=== PATIENT | female | born 1930 | race Caucasian/White ===

== ENCOUNTER 2017-05-12 14:32 | Emergency (ER) | payer MEDICARE, OTHER ==
[2017-05-12] MEDS ORDERED: METOPROLOL 5 MG/5 ML VIAL IVP STA ×3 (15:07→15:52)
[2017-05-12 15:10] LABS: BASOPHILS # (AUTO) 0.1 10^3/uL (0.0-0.1); BASOPHILS % (AUTO) 0.6 %; EOSINOPHILS # (AUTO) 0.1 10^3/uL (0.0-0.7); EOSINOPHILS % (AUTO) 1.2 %; HCT - HEMATOCRIT 45.4 % (37.0-47.0); HGB - HEMOGLOBIN 14.8 g/dL (12.0-16.0); LYMPHOCYTES # (AUTO) 3.6 10^3/uL (1.5-3.5); LYMPHOCYTES % (AUTO) 30.1 %; MEAN CORPUSCULAR HEMOGLOBIN 31.7 pg (27.0-31.0); MEAN CORPUSCULAR HGB CONC 32.5 g/dL (32.0-36.0); MEAN CORPUSCULAR VOLUME 97.7 fL (81.0-99.0); MEAN PLATELET VOLUME 8.5 fL (7.9-10.8); MONOCYTES % (AUTO) 8.1 %; NEUTROPHILS # (AUTO) 7.2 10^3/uL (1.5-6.6); RED BLOOD COUNT 4.65 10^6/uL (4.20-5.40); RED CELL DISTRIBUTION WIDTH 14.5 % (12.0-15.0)
[2017-05-12] MEDS ORDERED: METOPROLOL 5 MG/5 ML VIAL IVP ONE ×2 (15:17→15:40)
[2017-05-12 15:22] LABS: ALBUMIN/GLOBULIN RATIO 1.1 (1.0-2.2); BILIRUBIN,TOTAL 0.8 mg/dL (0.2-1.0); CALCIUM 9.2 mg/dL (8.5-10.3); POTASSIUM 4.1 mmol/L (3.5-5.0); TOTAL PROTEIN 7.6 g/dL (6.7-8.2)
--- NOTE | 2017-05-12 15:22 | XRAY Preliminary Report ---
Exam: XR Chest 1 View IMPRESSION: Small patchy density right mid lung uncertain significance. If this lady has symptoms of an inflammatory process, follow-up two-view chest after antibiotic therapy recommended. If no prior e xams available to evaluate for long-term stability nor respiratory symptoms at this time, upright 2 v iew chest recommended when this lady is able. [facility] SITE ID: [id number]
--- NOTE | 2017-05-12 15:24 | ED Physician Documentation ---
History of Present Illness - Stated complaint Stated Complaint: CHEST PX - Chief complaint Chief Complaint: Cardiac - Additonal information Additional information: hx from pt 87 f known a fib on xarelto and recently [facility] days to be started on dofetilide for rate control last stress test < 2 yr ago was fine left sided chest pain upon awakening worse with movement and she thinks maybe she slept on it wrong, but no change in activity recently and not TTP no fever or cough has been breathing rapidly at night and having some new pedal edema - but no dyspnea on exertion recently no inc caffeine, no decongestants, no other recent med changes Review of Systems Constitutional: denies: Fever, Chills Throat: denies: Sore throat Cardiac: reports: Chest pain / pressure, Palpitations Respiratory: denies: Dyspnea, Cough GI: denies: Abdominal Pain, Nausea, Vomiting, Diarrhea Musculoskeletal: reports: Extremity swelling Endocrine: denies: Easy bruising / bleeding Immunocompromised: denies: Immunocompromised PD PAST MEDICAL HISTORY - Past Medical History Past Medical History: Yes Cardiovascular: Coronary artery disease, Atrial fibrillation Respiratory: Asthma, COPD - Past Surgical History General: Cholecystectomy Ortho: Shoulder arthroplasty Cardiovascular: Coronary stent HEENT: Tonsil/Adenoidectomy - Present Medications Home Medications: Ambulatory Orders Medication Instructions Recorded Confirmed Atorvastatin [Lipitor] 10 mg 05/12/17 Budesonide/Formoterol Fumarate 05/12/17 [Symbicort 160-4.5 Mcg Inhaler] Dofetilide 250 mcg PO DAILY 05/12/17 05/12/17 Furosemide 20 mg PO DAILY 05/12/17 05/12/17 Levothyroxine Sodium [Synthroid] 50 mcg PO DAILY 05/12/17 05/12/17 Omeprazole 20 mg PO DAILY 05/12/17 05/12/17 Rivaroxaban [Xarelto] 20 mg PO DAILY 05/12/17 05/12/17 Tiotropium [place] [Spiriva] 05/12/17 - Allergies Allergies/Adverse Reactions: Allergies Allergy/AdvReac Type Severity Reaction Status Date / Time No Known Drug Allergies Allergy Verified 05/12/17 14:39 - Social History Does the pt smoke?: No Smoking Status: Never smoker Does the pt drink ETOH?: No Does the pt have substance abuse?: No - Immunizations Immunizations: TDAP current <10years - POLST Patient has POLST: No PD ED PE NORMAL - Vitals Vital signs reviewed: Yes - General General: Alert and oriented X 3 - HEENT HEENT: PERRL - Neck Neck: Supple, no meningeal sign - Cardiac Cardiac: No: RRR (rapid and irreg) - Respiratory Respiratory: No respiratory distress, Clear bilaterally - Derm Derm: Normal color - Extremities Extremities: Other (mild ok edema) Results - Vitals Vitals: Vital Signs - 24 hr 05/12/17 05/12/17 05/12/17 14:36 15:25 15:30 Temperature 36.3 C L Heart Rate 86 106 H 98 Respiratory 18 18 17 Rate Blood Pressure 146/101 H 142/91 H 124/96 H O2 Saturation 99 97 97 05/12/17 05/12/17 05/12/17 15:35 15:45 15:50 Temperature Heart Rate 102 H 95 97 Respiratory 19 16 22 Rate Blood Pressure 136/92 H 145/90 H 134/74 H O2 Saturation 97 96 96 05/12/17 05/12/17 15:55 16:15 Temperature Heart Rate 69 68 Respiratory 12 21 Rate Blood Pressure 132/101 H 142/75 H O2 Saturation 96 96 Oxygen O2 Source Room air - EKG (time done) 1448 Rate: Rate (enter#) (80) Rhythm: Atrial fibrillation, Other (pairs triplets of PVCs on tele) Ischemia: Non specific changes - Labs Labs: Laboratory Tests 05/12/17 05/12/17 05/12/17 15:00 15:00 15:00 WBC 12.0 H RBC 4.65 Hgb 14.8 Hct 45.4 MCV 97.7 MCH 31.7 H MCHC 32.5 RDW 14.5 Plt Count 262 MPV 8.5 Neut # 7.2 H Lymph # 3.6 H [place] # 1.0 Eos # 0.1 Baso # 0.1 Absolute Nucleated RBC 0.00 Nucleated RBCs 0.0 Sodium 135 Potassium 4.1 Chloride 97 L Carbon Dioxide 29 Anion Gap 9.0 BUN 16 Creatinine 1.0 Estimated GFR (MDRD) 53 L Glucose 93 Calcium 9.2 Total Bilirubin 0.8 AST 23 ALT 21 Alkaline Phosphatase 67 Troponin I < 0.04 B-Natriuretic Peptide Total Protein 7.6 Albumin 3.9 Globulin 3.7 Albumin/Globulin Ratio 1.1 Lipase 25 07/20/17 15:00 WBC RBC Hgb Hct MCV MCH MCHC RDW Plt Count MPV Neut # Lymph # [place] # Eos # Baso # Absolute Nucleated RBC Nucleated RBCs Sodium Potassium Chloride Carbon Dioxide Anion Gap BUN Creatinine Estimated GFR (MDRD) Glucose Calcium Total Bilirubin AST ALT Alkaline Phosphatase Troponin I B-Natriuretic Peptide 503 H Total Protein Albumin Globulin Albumin/Globulin Ratio Lipase - Rads (name of study) CXR Radiology: See rad report (small patchy density right mid lung, consider follow up CXR after antibiotcs - pt has no cough no fever clear lungs on exam - do not thinbk ab are needed but will rec fup CXR) PD MEDICAL DECISION MAKING - ED course ED course: given BB and converted to sinus, trop neg after > 8 hr of sx, slightly elev BNP and some edema but no sig CHF on exam, will inc lasix and rec fup cardio for an echo Departure - Departure Disposition: 01 Home, Self Care Clinical Impression: Atrial fibrillation, rapid, Orthopnea Chest pain Qualifiers: Chest pain type: unspecified Qualified Code(s): R07.9 - Chest pain, unspecified Condition: Good Instructions: ED Chest Pain Atypical Unkn Cause, Atrial Fibrillation Dc Follow-Up: Patricia Perla ARNP [Primary Care Provider] - Comments: The blood tests for a heart attack were negative. It is very unlikely you would develop a blood clot in your lugs while already on xarelto. The xray does not show an aortic aneurysm or tear I am not sure why your chest is hurting - it seems to be worse when you move so it may be in the muscles of your chest wall. You were in atrial fibrillation but after the rate was slowed down with lopressor you converted back to a regular rhythm Your feet are swollen and the blood test for congestive heart failure was slightly elevated and so i suspect your rapid breathing at night is due to extra fluid in your lungs. There was a small area of fluid or consolidation in the right lung but a large or dangerous amount of fluid. Please increase your lasix to 40 mg daily for the next week. Please follow up with your tooling engineering tech about the chest pain and fluid in your lungs. And please get your electrolytes and blood pressure checked within the next week after increasing your lasix. The radiologist recommends a repeat xray in 6 weeks as well to see if the density in your right lungs clears up. Return to the ER if worse
--- NOTE | 2017-05-12 15:34 | XRAY Report ---
EXAM: CHEST RADIOGRAPHY EXAM DATE: 05/12/2017 03:00 p.m. CLINICAL HISTORY: Chest pain. COMPARISON: None. TECHNIQUE: 1 view. FINDINGS: Lungs/Pleura: Small patchy infiltrate or atelectasis, right midlung. Left lung is clear. No effusion, vascular congestion nor pneumothorax. Mediastinum: Within exam limitations, cardiomediastinal contour is normal. Other: None. IMPRESSION: Small patchy density in right mid lung of uncertain significance. If this lady has symptoms of an inf lammatory process, follow-up 2-view chest after antibiotic therapy recommended. If no prior exams jacinda ilable to evaluate for long-term stability nor respiratory symptoms at this time, upright 2-view ches t recommended when this lady is able. [facility] Referring Provider Line: [phone] SITE ID: [id number]
[2017-05-12] MEDS ORDERED: ACETAMINOPHEN 325 MG TABLET PO STA (16:51)
[2017-05-12 18:12] VITALS: BP 134/84
== END 2017-05-12 17:50 | disposition home or self-care (01) ==
LOC: ED 14:32
DX: I48.91 Unspecified atrial fibrillation (principal); Z79.01 Long term (current) use of anticoagulants; R06.01 Orthopnea; R07.9 Chest pain, unspecified; I25.10 Atherosclerotic heart disease of native coronary artery without angina pectoris; J44.9 Chronic obstructive pulmonary disease, unspecified; J45.909 Unspecified asthma, uncomplicated
CPT/HCPCS: 36415; 71010; 80053; 83690; 83880; 84484; 85025; 93005; 96374; 96376; 99284

== ENCOUNTER 2018-04-17 14:51 | Outpatient (CLI) | payer MEDICARE, OTHER | END 2018-04-17 14:52 | disposition critical access hospital (66) | LOC: EMS 14:51 | PROVIDERS: ATTEND Surgery | DX: R53.83 Other fatigue (principal); R06.02 Shortness of breath; R50.9 Fever, unspecified | CPT/HCPCS: A0425; A0427 ==

== ENCOUNTER 2018-04-17 15:22 | Inpatient (IN) | payer MEDICARE, OTHER ==
--- NOTE | 2018-04-17 15:40 | ED Physician Documentation ---
History of Present Illness - Stated complaint Stated Complaint: SOA - History obtained from History obtained from: Patient - History of Present Illness Timing: Yesterday (88-year-old woman with history of atrial fibrillation, GERD, CHF, COPD and asthma who was on antibiotics for pneumonia about 3 months ago developed a productive cough with shortness of breath and fatigue and chills starting today. On seeing her temperature was 101 and her pulse oximetry was 90 %. She was administered nitroglycerin paste and Lasix en route and a breathing treatment without change.) Review of Systems Ten Systems: 10 systems reviewed and negative Constitutional: reports: Fever, Chills, Fatigue Nose: denies: Rhinorrhea / runny nose, Congestion Throat: denies: Sore throat Cardiac: denies: Chest pain / pressure, Palpitations PD PAST MEDICAL HISTORY - Past Medical History Cardiovascular: Coronary artery disease, Atrial fibrillation Respiratory: Asthma, COPD - Past Surgical History General: Cholecystectomy Ortho: Shoulder arthroplasty Cardiovascular: Coronary stent HEENT: Tonsil/Adenoidectomy - Present Medications Home Medications: Ambulatory Orders Medication Instructions Recorded Confirmed Atorvastatin [Lipitor] 10 mg 05/12/17 Budesonide/Formoterol Fumarate 05/12/17 [Symbicort 160-4.5 Mcg Inhaler] Dofetilide 250 mcg PO DAILY 05/12/17 05/12/17 Furosemide 20 mg PO DAILY 05/12/17 05/12/17 Levothyroxine Sodium [Synthroid] 50 mcg PO DAILY 05/12/17 05/12/17 Omeprazole 20 mg PO DAILY 05/12/17 05/12/17 Rivaroxaban [Xarelto] 20 mg PO DAILY 05/12/17 05/12/17 Tiotropium [place] [Spiriva] 05/12/17 - Allergies Allergies/Adverse Reactions: Allergies Allergy/AdvReac Type Severity Reaction Status Date / Time No Known Drug Allergies Allergy Verified 05/12/17 14:39 - Social History Does the pt smoke?: No Smoking Status: Never smoker Does the pt drink ETOH?: No Does the pt have substance abuse?: No - Family History Family history: reports: Non contributory - Immunizations Immunizations: TDAP current <10years - POLST Patient has POLST: No PD ED PE NORMAL - Vitals Vital signs reviewed: Yes - General General: Alert and oriented X 3, No acute distress - HEENT HEENT: PERRL, EOMI - Neck Neck: Supple, no meningeal sign, No bony TTP - Cardiac Cardiac: Other (Loud systolic murmur) - Respiratory Respiratory: Other (Breathing comfortably, significant crackles in the right base more so than the left but diminished somewhat in both bases.) - Abdomen Abdomen: Soft, Non tender - Back Back: No CVA TTP, No spinal TTP - Derm Derm: Normal color, Warm and dry - Extremities Extremities: Other (Mild bilateral pitting pedal edema, symmetric) - Neuro Neuro: Alert and oriented X 3, Normal speech Results - Vitals Vitals: Vital Signs - 24 hr 04/17/18 15:31 Temperature 37.8 C H Heart Rate 70 Respiratory 16 Rate Blood Pressure 132/67 H O2 Saturation 94 Oxygen O2 Source Nasal cannula Oxygen Flow Rate 3 - EKG (time done) 1549 Rate: Rate (enter#) (70) Rhythm: Other (Underlying A. fib with paced rhythm, ventricular.) - Labs Labs: Laboratory Tests 04/17/18 04/17/18 04/17/18 15:50 15:50 15:50 WBC 9.5 RBC 3.86 L Hgb 12.0 Hct 36.9 L MCV 95.6 MCH 31.1 H MCHC 32.5 RDW 15.5 H Plt Count 204 MPV 7.9 Neut # (Auto) 8.6 H Lymph # (Auto) 0.4 L [place] # (Auto) 0.5 Eos # (Auto) 0.0 Baso # (Auto) 0.0 Absolute Nucleated RBC 0.00 Nucleated RBC % 0.0 Sodium 131 L Potassium 3.5 Chloride 101 Carbon Dioxide 21 Anion Gap 9.0 BUN 22 H Creatinine 1.3 H Estimated GFR (MDRD) 39 L Glucose 95 Calcium 8.3 L Magnesium 1.4 L Total Bilirubin 1.8 H AST 26 ALT 28 Alkaline Phosphatase 52 Troponin I 0.04 Total Protein 6.5 L Albumin 3.1 L Globulin 3.4 Albumin/Globulin Ratio 0.9 L Lipase 21 L PD MEDICAL DECISION MAKING - ED course ED course: 88-year-old woman who is febrile at home with cough and shortness of breath. She had some soft diastolic pressures in the field and has evidence of right lower lobe pneumonia on exam which is corroborated on x-ray. Her white blood cell count is okay she does have some prerenal insufficiency with a normal creatinine of 1 now 1.3. She is breathing rapidly, up into the 30s sometimes on the monitor. She has not been hypoxic though. Given her advanced age and comorbidities she will need to be admitted for further evaluation and treatment. She was placed on Rocephin and for atypical coverage I chose doxycycline given her cardiac meds that cause long QT. I spoke with Dr. Bolden for admission at 4:25 PM. - Sepsis Event Vital Signs: Vital Signs - 24 hr 04/17/18 15:31 Temperature 37.8 C H Heart Rate 70 Respiratory 16 Rate Blood Pressure 132/67 H O2 Saturation 94 Oxygen O2 Source Nasal cannula Oxygen Flow Rate 3 Departure - Departure Disposition: 66 [facility] DC/Xfer Clinical Impression: Pneumonia Qualifiers: Pneumonia type: due to unspecified organism Laterality: right Lung location: lower lobe of lung Qualified Code(s): J18.1 - Lobar pneumonia, unspecified organism Condition: Serious
[2018-04-17 16:02] LABS: BASOPHILS % (AUTO) 0.3 %; LYMPHOCYTES # (AUTO) 0.4 10^3/uL (1.5-3.5); LYMPHOCYTES % (AUTO) 4.2 %; MEAN CORPUSCULAR HEMOGLOBIN 31.1 pg (27.0-31.0); MEAN CORPUSCULAR HGB CONC 32.5 g/dL (32.0-36.0); MEAN CORPUSCULAR VOLUME 95.6 fL (81.0-99.0); MEAN PLATELET VOLUME 7.9 fL (7.9-10.8); MONOCYTES # (AUTO) 0.5 10^3/uL (0.0-1.0); MONOCYTES % (AUTO) 5.2 %; NEUTROPHILS # (AUTO) 8.6 10^3/uL (1.5-6.6); NEUTROPHILS % (AUTO) 90.3 %; PLT - PLATELET COUNT 204 10^3/uL (130-450); RED BLOOD COUNT 3.86 10^6/uL (4.20-5.40); RED CELL DISTRIBUTION WIDTH 15.5 % (12.0-15.0); WHITE BLOOD COUNT 9.5 x10^3/uL (4.8-10.8)
[2018-04-17] MEDS ORDERED: DOXYCYCLINE INJ 100 MG in SODIUM CHLORIDE 0.9% MINIBAG 100 ML IV STA (16:03)
[2018-04-17] MEDS ORDERED: cefTRIAXone 1 GM in SODIUM CHLORIDE 0.9% MINIBAG 100 ML IV STA (16:03)
--- NOTE | 2018-04-17 16:12 | XRAY Report ---
Procedure Date: 04/17/2018 Accession Number: [id number] / [id number] Procedure: XR - Chest 1 View X-Ray CPT Code: 58780 FULL RESULT: EXAM: CHEST RADIOGRAPHY EXAM DATE: 04/17/2018 04:01 PM. CLINICAL HISTORY: Cough and shortness of breath for 4 days. COMPARISON: 05/12/2017. TECHNIQUE: 1 view. FINDINGS: Lungs/Pleura: New opacification inferior third right lung. New mild blunting right lateral costophrenic angle. New mild interstitial prominence throughout both upper lobes and left lung base. No pneumothorax. Mediastinum: New single lead left subclavian pacer. Normal caliber heart. No tracheal shift. Other: None. IMPRESSION: 1. Pacer. 2. Consolidation or mass right lung base. 3. Small right pleural effusion. 4. More diffuse interstitial prominence raising the possibility of interstitial edema versus airway disease. [facility]
[2018-04-17 16:14] LABS: ALBUMIN 3.1 g/dL (3.2-5.5); ALBUMIN/GLOBULIN RATIO 0.9 (1.0-2.2); BILIRUBIN,TOTAL 1.8 mg/dL (0.2-1.0); CALCIUM 8.3 mg/dL (8.5-10.3); CREATININE 1.3 mg/dL (0.4-1.0); MAGNESIUM 1.4 mg/dL (1.7-2.8); TOTAL PROTEIN 6.5 g/dL (6.7-8.2)
[2018-04-17] MEDS ORDERED: MAGNESIUM SULFATE 2 GRAM 2 GM/50 ML BAG IV ONE (16:17)
[2018-04-17] MEDS ORDERED: PROCHLORPERAZINE 10 MG/2 ML VIAL IVP PRN (16:33)
[2018-04-17] MEDS ORDERED: HYDROcod/ACETAM 5/325 MG TABLET PO PRN (16:33)
[2018-04-17] MEDS ORDERED: ONDANSETRON 4 MG/2 ML VIAL IVP PRN (16:33)
[2018-04-17] MEDS ORDERED: ACETAMINOPHEN 325 MG TABLET PO PRN (16:33)
[2018-04-17] MEDS ORDERED: IPRATROPIUM/ALBUTEROL 3 ML NEB INH PRN (16:33)
[2018-04-17] MEDS ORDERED: SODIUM CHLORIDE 0.9% 1,000 ML IV SCH (19:00)
[2018-04-17] MEDS: SODIUM CHLORIDE FLUSH 0.9% 10 ML SYRINGE IVP SCH ×2 (19:20→23:58)
--- NOTE | 2018-04-17 19:47 | HISTORY & PHYSICAL EXAMINATION ---
Chief Complaint - Chief Complaint Chief Complaint: Shortness of breath History of Present Illness - Admitted From Admitted From:: Emergency Department - History Obtained From Records Reviewed: Yes History obtained from: Patient, patients daughter Exam Limitations: None - History of Present Illness HPI Comment/Other: Patient is an 88-year-old female with a past medical history significant for atrial fibrillation status post pacemaker on Xarelto, congestive heart failure with unknown ejection fraction, COPD, coronary artery disease status post stent , hypertension and osteoarthritis who presented to the emergency department with a chief complaint of shortness of breath. The patient states that between the months of November and January of this year she was hospitalized 3 times in [place] where she lives during the winter. She states first she was hospitalized for a bilateral pneumonia and spent 2 weeks in the hospital then was hospitalized for A. fib with rapid ventricular response and states that she spent 2 weeks in the hospital ending up with a pacemaker then the third time she was hospitalized for a CHF exacerbation. She states that over the last 2 months she has been doing fairly well and her daughter has been staying with her since her hospitalizations in [place]. She states that over the last week she has noticed that she has become increasingly short of breath. She states initially she noticed the shortness of breath with exertion as she could not go more than 30 feet without becoming short of breath and having to stop. She states over the last week it has progressed to the point where today with just 10 feet she became very short of breath and had to stop. The patient also states that she has been having a dry cough and today noted that she had a fever of 101. She was also clammy and when her daughter checked her oxygen saturation this afternoon she was found to have an O2 sat of 83% while sitting in bed. At this point the daughter became concerned and called EMS. The patient denies any headaches, blurred vision, runny nose, sore throat, nasal congestion, difficulty swallowing, chest pain, orthopnea, PND, palpitations, abdominal pain, nausea, vomiting, diarrhea, constipation, urinary urgency, urinary frequency, dysuria, joint pain, joint swelling, back pain, neck stiffness, recent unintentional weight loss, changes in her appetite or any focal neurologic deficits. The patient does state that she has had some increased lower extremity swelling. On presentation to the emergency department the patient was febrile with a low- grade temperature of 37.8, normotensive and tachypneic with a respiratory rate of 27 and hypoxic with oxygen saturation of 94% on 3 L of oxygen. The patient underwent routine lab work which showed creatinine of 1.3 from a baseline of 1.0 mild hypo-natremia and hypomagnesemia. The patient's troponin was 0.04 and she did not have a leukocytosis. The patient's EKG was paced with no ST elevations or ischemic changes noted. The patient's chest x-ray revealed consolidation or mass the right lung base as well as diffuse interstitial prominence raising the possibility of interstitial edema versus airspace disease. The patient started on ceftriaxone and azithromycin for community acquired pneumonia and admitted to the medical [facility]ard. History - Past Medical History Cardiovascular: reports: Hypertension, Coronary artery disease, Atrial fibrillation Respiratory: reports: COPD Musculoskeletal: reports: Osteoarthritis - Past Surgical History General: reports: Cholecystectomy Ortho: reports: Shoulder arthroplasty Cardiovascular: reports: Coronary stent HEENT: reports: Tonsil/Adenoidectomy - Family & Social History Family History: Mother: (Mom at 95 and dad at 61), Father: Family History Comment/Other: No family history of heart disease, cancer or diabetes Social History Notes: Patient lives 6 months in [place] in [place] and 6 months up in between [place] and [facility]. She is and had 4 children 1 of whom has . The patient's daughter has been living with her since December of this year hoping to take care of her. The patient has a full-time caregiver. She is a former smoker smoked for about 30 years half a pack a day. She is also exposed to a lot of secondhand smoke. She does drink alcohol was drinking on a daily basis until her recent illnesses and states that she did have some vodka last night. She denies any illicit drug use. - POLST Patient has POLST: No POLST Status: Full Code Meds/Allgy - Home Medications Home Medications: Ambulatory Orders Medication Instructions Recorded Confirmed Atorvastatin [Lipitor] 10 mg PO QPM 05/12/17 04/17/18 Omeprazole 40 mg PO QDAC 05/12/17 04/17/18 Tiotropium [place] [Spiriva] 1 puffs INH DAILY 05/12/17 04/17/18 Budesonide/Formoterol Fumarate 1 - 2 puffs INH BID 04/17/18 04/17/18 [Symbicort 160-4.5 Mcg Inhaler] Furosemide [Lasix] 40 mg PO MOWEFR@0800 04/17/18 04/17/18 Levalbuterol [Xopenex] 1.25 mg INH Q6H PRN 04/17/18 04/17/18 Levothyroxine [Synthroid] 75 mcg PO QDAC 04/17/18 04/17/18 Magnesium l-Lactate [Magnesium 168 mg PO BIDWM 04/17/18 04/17/18 l-Lactate Dihyd Sr] Rivaroxaban [Xarelto] 15 mg PO QDDINNER 04/17/18 04/17/18 Sodium Chloride For Inhalation 4 ml INH BID 04/17/18 04/17/18 [Hyper-Ramin] Spironolactone [Aldactone] 12.5 mg PO DAILY 04/17/18 04/17/18 Ubidecarenone [Coenzyme Q-10] 200 mg PO DAILY 04/17/18 04/17/18 Zolpidem [Ambien] 5 mg PO HS PRN 04/17/18 04/17/18 - Allergies Allergies/Adverse Reactions: Allergies Allergy/AdvReac Type Severity Reaction Status Date / Time No Known Drug Allergies Allergy Verified 05/12/17 14:39 Review of Systems - Other Findings Other Findings: A comprehensive review of systems was performed the pertinent positives and negatives are stated above in the HPI and the remainder of the review of systems is negative. Exam - Vital Signs Reviewed Vital Signs: Yes Vital Signs: Vital Signs x48h Temp Pulse Pulse Resp BP BP Pulse Ox 04/17/18 19:00 36.9 C 70 36 H 137/50 H 94 04/17/18 18:22 70 27 H 135/59 H 98 - Physical Exam General Appearance: positive: Alert, Moderate distress (tachypnic, respiratory distress) Eyes Bilateral: positive: Normal inspection, PERRL, EOMI, No lid inflammation, Conjunctivae nml, No scleral icterus ENT: positive: ENT inspection nml, Pharynx nml, No signs of dehydration. negative: Purulent nasal drainage, Pharyngeal erythema, Oral lesions Neck: positive: Nml inspection, Thyroid nml, Trachea midline, Other (Elevated JVD). negative: Thyromegaly, Lymphadenopathy (R), Lymphadenopathy (L), Stiff neck Respiratory: positive: Chest non-tender, Wheezes (scattered), Rales (basilar crackles), Rhonchi (right), Other (Diminished breath sounds in the right base) Cardiovascular: positive: Regular rate & rhythm, No gallop, Systolic murmur Peripheral Pulses: positive: 2+ Abdomen: positive: Non-tender, No organomegaly, Nml bowel sounds, No distention. negative: Guarding, Rebound, Hepatomegaly Back: positive: Nml inspection. negative: CVA tenderness (R), CVA tenderness (L ) Skin: positive: Color nml, No rash. negative: Cyanosis, Diaphoresis, Pallor Extremities: positive: Full ROM, Pedal edema (Bilateral 2+ edema in the LEs) Neurologic/Psychiatric: positive: Oriented x3, CN's nml (2-12), Motor nml, Sensation nml, Mood/affect nml Conclusion/Plan - Problem List (1) HCAP (healthcare-associated pneumonia) Conclusion/Plan: With cough and shortness of breath along with fever. She was found to have a right lung consolidation consistent with a pneumonia. The patient was hospitalized 3 times in the last 4 months. Patient will be treated for a healthcare associated pneumonia. She did have fever on presentation and was hypoxic and in some respiratory distress. Plan: IV cefepime and Levaquin to treat healthcare associated pneumonia Nebs Supplemental oxygen Steroids (2) COPD exacerbation Conclusion/Plan: Patient appears to have COPD exacerbation likely secondary to healthcare associated pneumonia. She does have some wheezing and tightness on examination and has a history of COPD. Plan: Duo nebs around the clock 24 hours and as needed IV Solu-Medrol 40 mg 3 times daily IV antibiotics to treat healthcare associated pneumonia On supplemental oxygen. (3) CHF (congestive heart failure), NYHA class II Conclusion/Plan: Patient appears to have acute on chronic congestive heart failure. It is unclear as to what the patient's previous ejection fraction is. She does appear to be fluid overloaded as she has edema in her legs mild JVD, crackles in her lungs and is short of breath with orthopnea. Plan: IV Lasix 40 mg twice daily Fluid restriction 2 L Monitor I's and O's Daily weights Echocardiogram Telemetry monitoring Supplemental oxygen Qualifiers: Congestive heart failure chronicity: acute on chronic (4) Atrial fibrillation Conclusion/Plan: Patient has a history of atrial fibrillation and is status post pacemaker placement. She currently is paced at 70 bpm. The patient is on Xarelto and metoprolol. Atrial fibrillation appears to be stable Qualifiers: Atrial fibrillation type: chronic Qualified Code(s): I48.2 - Chronic atrial fibrillation (5) Hypertension Conclusion/Plan: Patient is a history of hypertension blood pressure is stable on presentation. Patient will be continued on her home medications Monitor blood pressure Qualifiers: Hypertension type: essential hypertension Qualified Code(s): I10 - Essential (primary) hypertension - Lab Results Lab results reviewed: Yes Fish Bones: 04/17/18 15:50 04/17/18 15:50 Other Lab Results: Laboratory Results WBC 9.5 x10^3/uL (4.8-10.8) 04/17/18 15:50 RBC 3.86 10^6/uL (4.20-5.40) L 04/17/18 15:50 Hgb 12.0 g/dL (12.0-16.0) 04/17/18 15:50 Hct 36.9 % (37.0-47.0) L 04/17/18 15:50 MCV 95.6 fL (81.0-99.0) 04/17/18 15:50 MCH 31.1 pg (27.0-31.0) H 04/17/18 15:50 MCHC 32.5 g/dL (32.0-36.0) 04/17/18 15:50 RDW 15.5 % (12.0-15.0) H 04/17/18 15:50 Plt Count 204 10^3/uL (130-450) 04/17/18 15:50 MPV 7.9 fL (7.9-10.8) 04/17/18 15:50 Neut # (Auto) 8.6 10^3/uL (1.5-6.6) H 04/17/18 15:50 Lymph # (Auto) 0.4 10^3/uL (1.5-3.5) L 04/17/18 15:50 Clinch # (Auto) 0.5 10^3/uL (0.0-1.0) 04/17/18 15:50 Eos # (Auto) 0.0 10^3/uL (0.0-0.7) 04/17/18 15:50 Baso # (Auto) 0.0 10^3/uL (0.0-0.1) 04/17/18 15:50 Absolute Nucleated RBC 0.00 x10^3/uL 04/17/18 15:50 Nucleated RBC % 0.0 /100WBC 04/17/18 15:50 Sodium 131 mmol/L (135-145) L 04/17/18 15:50 Potassium 3.5 mmol/L (3.5-5.0) 04/17/18 15:50 Chloride 101 mmol/L (101-111) 04/17/18 15:50 Carbon Dioxide 21 mmol/L (21-32) 04/17/18 15:50 Anion Gap 9.0 (6-13) 04/17/18 15:50 BUN 22 mg/dL (6-20) H 04/17/18 15:50 Creatinine 1.3 mg/dL (0.4-1.0) H 04/17/18 15:50 Estimated GFR (MDRD) 39 (>89) L 04/17/18 15:50 Glucose 95 mg/dL (70-100) 04/17/18 15:50 Lactic Acid 1.1 mmol/L (0.5-2.2) 04/17/18 16:12 Calcium 8.3 mg/dL (8.5-10.3) L 04/17/18 15:50 Magnesium 1.4 mg/dL (1.7-2.8) L 04/17/18 15:50 Total Bilirubin 1.8 mg/dL (0.2-1.0) H 04/17/18 15:50 AST 26 IU/L (10-42) 04/17/18 15:50 ALT 28 IU/L (10-60) 04/17/18 15:50 Alkaline Phosphatase 52 IU/L (42-121) 04/17/18 15:50 Troponin I 0.04 ng/mL (<0.49) 04/17/18 15:50 Total Protein 6.5 g/dL (6.7-8.2) L 04/17/18 15:50 Albumin 3.1 g/dL (3.2-5.5) L 04/17/18 15:50 Globulin 3.4 g/dL (2.1-4.2) 04/17/18 15:50 Albumin/Globulin Ratio 0.9 (1.0-2.2) L 04/17/18 15:50 Lipase 21 U/L (22-51) L 04/17/18 15:50 - Diagnostic Imaging Results Diagnostic Imaging Results: positive: Final report reviewed Diagnostic Imaging Results Comments: Chest x-ray Impression: 1. Pacer 2. Consolidation or mass right lung base 3. Small right pleural effusion 4. More diffuse interstitial prominence raising the possibility of interstitial edema versus airspace disease. - EKG Results EKG Interpreted Independently: Yes EKG Findings: Paced Core Measures - Anticipated LOS I expect patient to be DC'd or transferred within 96 hours.: Yes - DVT/VTE - Prophylaxis VTE/DVT Device ordered at admit?: Yes
[2018-04-17 20:45] LABS: BILIRUBIN,URINE NEGATIVE (NEGATIVE); CLARITY,URINE CLEAR (CLEAR); GLUCOSE, URINE (UA) NEGATIVE (NEGATIVE); KETONES,URINE (UA) NEGATIVE (NEGATIVE); LEUKOCYTE ESTERASE, URINE NEGATIVE (NEGATIVE); NITRITE,URINE NEGATIVE (NEGATIVE); OCCULT BLOOD,URINE TRACE-LYSE (NEGATIVE); PH,URINE 5.5 PH (5.0-7.5); PROTEIN,URINE NEGATIVE (NEGATIVE); UROBILINOGEN,URINE 0.2 (NORMAL) E.U./dL (NORMAL)
[2018-04-17] MEDS: FUROSEMIDE 40 MG/4 ML VIAL IVP SCH (20:51)
[2018-04-17] MEDS: methylPREDNISolone SUCCINATE 40 MG/ML VIAL IVP SCH (20:51)
[2018-04-17] MEDS: RIVAROXABAN 15 MG TABLET PO SCH (20:52)
[2018-04-17] MEDS: SODIUM CHLORIDE FLUSH 0.9% 10 ML SYRINGE IVP PRN (20:52)
[2018-04-17] MEDS: ATORVASTATIN 10 MG TABLET PO SCH (20:52)
[2018-04-17] MEDS: levoFLOXacin 750 MG/150 ML 750 MG/150 ML BAG IV SCH (20:52)
[2018-04-17] MEDS ORDERED: CEFEPIME 2 GM in SODIUM CHLORIDE 0.9% MINIBAG 100 ML IV SCH (21:00)
[2018-04-17] MEDS ORDERED: levoFLOXacin 750 MG/150 ML 750 MG/150 ML BAG IV SCH (21:00)
--- NOTE | 2018-04-17 21:35 | CT Report ---
Procedure Date: 04/17/2018 Accession Number: [id number] / [id number] Procedure: CT - Chest W/O CPT Code: FULL RESULT: EXAM: CT CHEST EXAM DATE: 04/17/2018 08:16 PM. CLINICAL HISTORY: Evaluate possible mass on chest radiograph. COMPARISONS: 04/17/2018. TECHNIQUE: Routine helical CT imaging was performed through the chest. IV contrast: None. Reconstructions: Coronal and sagittal. In accordance with CT protocol optimization, one or more of the following dose reduction techniques were utilized for this exam: automated exposure control, adjustment of mA and/or KV based on patient size, or use of iterative reconstructive technique. FINDINGS: Lungs/Pleura: Dense right lower lobe consolidation and groundglass opacities with evidence of air bronchograms. No right lower lobe mass is identified on this noncontrast CT. In addition, there is moderate bilateral hilar bronchial wall thickening. No endobronchial lesion. There are multiple ill-defined peribronchovascular nodularities most apparent in the right upper, right middle and left lower lobes. Given the right lower lobe process, favor an infectious or inflammatory bronchiolitis. There is possible cavitation of the nodules in the left upper lobe, image 39. In addition, there is a spiculated 1.2 cm left upper lobe nodule on image 16. This is indeterminate. Mild thickening of the pleura of the right major fissure.Small right effusion seen. Mediastinum: Mild cardiac enlargement. No pericardial effusion or adenopathy. Extensive coronary artery calcifications are noted. Bones: Unremarkable. Visualized Abdomen: Exophytic subcentimeter posterior right renal cyst with calcifications of the septum. Gallbladder is surgically absent. No mass or intrahepatic bile duct dilation. Other: Large coarse right thyroid calcification. No supraclavicular or axillary adenopathy. The subcutaneous soft tissues of the chest wall are normal. Single lead left cardiac device is noted in the left anterior chest. Lead terminates in the right ventricle. IMPRESSION: 1. Dense right lower lobe consolidation with air bronchograms and patchy groundglass opacity concerning for pneumonia. Small right pleural effusion. 2. Extensive ill-defined reticulonodular tree-in-bud opacities scattered throughout the lung particularly involving the right upper, right middle and left lower lobe. Some of the nodularities in the lingula may be cavitary. Given the history, favor bronchopneumonia. Recommend follow-up radiographs or CTs in order to document resolution of these finding. 3. Indeterminate spiculated 1.2 cm left upper lobe nodule. This spiculated appearance raises concern for primary lung carcinoma or metastatic disease. Given the presence of inflammatory changes in the remaining lung, an infectious or inflammatory processes is also on the differential. If findings persist, recommend percutaneous biopsy. 4. No adenopathy. Extensive coronary artery disease. RADIA The above findings were discussed with Flakito Bolden by Dr. Noa Ronquillo at 21:34 hrs on 04/17/18.
[2018-04-17] MEDS: CEFEPIME 2 GM in SODIUM CHLORIDE 0.9% MINIBAG 100 ML IV SCH (22:27)
[2018-04-18] MEDS: IPRATROPIUM/ALBUTEROL 3 ML NEB INH SCH ×4 (00:04→15:52)
[2018-04-18 05:24] LABS: BASOPHILS % (AUTO) 0.1 %; HGB - HEMOGLOBIN 12.2 g/dL (12.0-16.0); LYMPHOCYTES # (AUTO) 0.5 10^3/uL (1.5-3.5); LYMPHOCYTES % (AUTO) 4.1 %; MEAN CORPUSCULAR HEMOGLOBIN 30.7 pg (27.0-31.0); MEAN CORPUSCULAR HGB CONC 31.3 g/dL (32.0-36.0); MEAN CORPUSCULAR VOLUME 97.9 fL (81.0-99.0); MEAN PLATELET VOLUME 8.2 fL (7.9-10.8); MONOCYTES # (AUTO) 0.6 10^3/uL (0.0-1.0); MONOCYTES % (AUTO) 4.8 %; NEUTROPHILS # (AUTO) 11.1 10^3/uL (1.5-6.6); PLT - PLATELET COUNT 191 10^3/uL (130-450); RED BLOOD COUNT 3.98 10^6/uL (4.20-5.40); RED CELL DISTRIBUTION WIDTH 15.9 % (12.0-15.0); WHITE BLOOD COUNT 12.2 x10^3/uL (4.8-10.8)
[2018-04-18 05:28] LABS: CALCIUM 8.5 mg/dL (8.5-10.3)
[2018-04-18] MEDS: methylPREDNISolone SUCCINATE 40 MG/ML VIAL IVP SCH ×3 (06:34→21:32)
[2018-04-18] MEDS: LEVOTHYROXINE 75 MCG TABLET PO SCH (06:34)
[2018-04-18] MEDS: FUROSEMIDE 40 MG/4 ML VIAL IVP SCH ×2 (06:34→14:16)
[2018-04-18] MEDS: SODIUM CHLORIDE FLUSH 0.9% 10 ML SYRINGE IVP PRN ×3 (06:34→21:32)
[2018-04-18] MEDS: SACCHAROMYCES BOULARDII 250 MG CAPSULE PO SCH ×2 (08:56→17:58)
[2018-04-18] MEDS: FAMOTIDINE 20 MG TABLET PO SCH (08:56)
[2018-04-18] MEDS: POLYETHYLENE GLYCOL 3350 17 GM PACKET PO SCH (08:57)
[2018-04-18] MEDS: SODIUM CHLORIDE FLUSH 0.9% 10 ML SYRINGE IVP SCH ×3 (08:57→23:43)
[2018-04-18] MEDS ORDERED: DOFETILIDE 250 MCG PO SCH (09:00)
[2018-04-18] MEDS ORDERED: AZITHROMYCIN INJ 500 MG in SODIUM CHLORIDE 0.9% 250 ML IV SCH (09:00)
[2018-04-18] MEDS ORDERED: cefTRIAXone 2 GM in SODIUM CHLORIDE 0.9% MINIBAG 100 ML IV SCH (09:00)
--- NOTE | 2018-04-18 17:17 | PROVIDER PROGRESS NOTE ---
Assessment/Plan - Problem List (1) HCAP (healthcare-associated pneumonia) Assessment/Plan: The patient "had a double pneumonia treated at [facility] in [place] 6 weeks ago." I will request that [facility] summary. Continue empiric antibiotics, as Pt has no cough or sputum. (2) COPD exacerbation Assessment/Plan: Continue nebs, steroids as they are already helping wheezing and SOB. Will start PT tomorrow. (3) Acute on chronic diastolic heart failure Assessment/Plan: Daughter described a recent Echo done 2 weeks ago at her Outreach Manager's order and that her "valves had gotten worse." Echo done here today shows a preserved LVEF. Continue gentle diuresis. Will change to po Lasix, due to dry oral mucosa. Will resquest recent Echo done at [facility], to [email or web address][pare. (4) CHF due to valvular disease Assessment/Plan: "Valves worse" per daughter's description of Cardiology impression from 2 week ago office visit. Continue Lasix, sodium restrict and may need CHF teaching. (5) Bacteremia Assessment/Plan: Blood culture ahs already turned positive with GPC. Patient is on appropriate antibiotic to cover this. Await final ID and MICs. (6) Chronic a-fib Assessment/Plan: Daughter reports that Pt had a new pacemaker placed approx. 4 weeks ago and describes ablation of rapid Afib (probably AV node ablation). Continue Xarelto, dose checked and is appropriate. (7) Abnormal CXR with multiple nodules Assessment/Plan: CXR and CT show multiple nodules and 1 is spiculated. The daughter says the Pt has a Quality Control Systems Manager that has told them that these are all foci of infection and that 1 year of treatment would be needed, which the Pt declined. It is unclear if she had a bronchoscopy. Will request last CT report (from hospitalization 6 weeks ago) and last Quality Control Systems Manager office visit note, when she also had PFTs done. The patient is an ex-smoker, none in >20 years. - Current Meds Current Meds: Current Medications Generic Name Dose Route Start Last Admin Trade Name Freq PRN Reason Stop Dose Admin Albuterol/Ipratropium 3 ml 04/17/18 19:00 04/18/18 15:52 Duoneb INH 04/18/18 18:59 3 ml RTQID KINSEY Administration Atorvastatin Calcium 10 mg 04/17/18 21:00 04/17/18 20:52 Lipitor PO 10 mg QPM KINSEY Administration Famotidine 20 mg 04/18/18 09:00 04/18/18 08:56 Pepcid PO 20 mg DAILY KINSEY Administration Furosemide 40 mg 04/17/18 21:00 04/18/18 14:16 Lasix Inj 40 Mg Vial IVP 40 mg BIDDIURETIC KINSEY Administration Levofloxacin 750 mg in 150 mls @ 100 mls/hr 04/17/18 21:00 04/17/18 22:33 Levaquin 750 Mg/150 Ml IV Infused Q48H KINSEY Infusion Cefepime HCl 2 gm/ Sodium 100 mls @ 200 mls/hr 04/17/18 22:00 04/17/18 22:57 Chloride IV Infused Q24H KINSEY Infusion Levothyroxine Sodium 75 mcg 04/18/18 07:00 04/18/18 06:34 Synthroid PO 75 mcg QDAC KINSEY Administration Methylprednisolone 40 mg 04/17/18 19:00 04/18/18 14:17 Solu-Medrol (40mg Vial) IVP 40 mg TID KINSEY Administration Polyethylene Glycol 17 gm 04/18/18 09:00 04/18/18 08:57 Miralax PO 17 gm DAILY KINSEY Administration Rivaroxaban 15 mg 04/17/18 19:30 04/17/18 20:52 Xarelto PO 15 mg QDDINNER KINSEY Administration Saccharomyces Boulardii 250 mg 04/18/18 08:00 04/18/18 08:56 Florastor PO 250 mg BIDWM KINSEY Administration Sodium Chloride 10 ml 04/17/18 16:33 04/18/18 14:21 Normal Saline Flush 0.9% IVP 20 ml PRN PRN Administration NEEDED PER PROVIDER ORDERS Sodium Chloride 10 ml 04/17/18 17:00 04/18/18 08:57 Normal Saline Flush 0.9% IVP 10 ml 0100,0900,1700 KINSEY Administration - Lab Result Fish Bone Diagrams: 04/18/18 04:51 04/18/18 04:51 Subjective - Subjective Patient Reports: Feeling Better, Resting Comfortably Objective Vital Signs: Vital Signs - 24 hr 04/17/18 04/17/18 04/17/18 18:22 19:00 21:12 Temperature 36.9 C Heart Rate 70 Heart Rate [ 70 Brachial] Respiratory 27 H 36 H 38 H Rate Blood Pressure 135/59 H Blood Pressure 137/50 H [Right Brachial artery] O2 Saturation 98 94 96 04/18/18 04/18/18 04/18/18 00:00 04:53 07:30 Temperature 36.9 C 36.7 C Heart Rate 72 Heart Rate [ 70 70 Brachial] Respiratory 19 17 18 Rate Blood Pressure Blood Pressure 128/41 L 142/57 H [Right Brachial artery] O2 Saturation 97 100 04/18/18 04/18/18 04/18/18 08:00 11:53 15:31 Temperature 37.0 C 37.2 C Heart Rate 70 Heart Rate [ 70 72 Brachial] Respiratory 14 18 18 Rate Blood Pressure Blood Pressure 120/55 L 121/64 [Right Brachial artery] O2 Saturation 95 96 04/18/18 15:52 Temperature Heart Rate 70 Heart Rate [ Brachial] Respiratory 28 H Rate Blood Pressure Blood Pressure [Right Brachial artery] O2 Saturation Oxygen O2 Source Room air I&O (Last 24 Hrs): Intake and Output Totals x24h 04/16/18 04/17/18 04/18/18 23:59 23:59 23:59 Intake Total 1000 750 Output Total 1130 Balance 1000 -380 General: Alert HEENT: Other (Dry oral mucosa) Neck: Supple, No JVD Neuro: Other (Possibly poor memory, as she repeats herself.) Cardiovascular: No murmurs Respiratory: Other (R side diminished ant, rales R posterior, L side clear and no wheezing anywhere) Abdomen: Normal bowel sounds, Soft Extremities: Other (Trace edema) - Results Results: Laboratory Results WBC 12.2 x10^3/uL (4.8-10.8) H 04/18/18 04:51 RBC 3.98 10^6/uL (4.20-5.40) L 04/18/18 04:51 Hgb 12.2 g/dL (12.0-16.0) 04/18/18 04:51 Hct 39.0 % (37.0-47.0) 04/18/18 04:51 MCV 97.9 fL (81.0-99.0) 04/18/18 04:51 MCH 30.7 pg (27.0-31.0) 04/18/18 04:51 MCHC 31.3 g/dL (32.0-36.0) L 04/18/18 04:51 RDW 15.9 % (12.0-15.0) H 04/18/18 04:51 Plt Count 191 10^3/uL (130-450) 04/18/18 04:51 MPV 8.2 fL (7.9-10.8) 04/18/18 04:51 Neut # (Auto) 11.1 10^3/uL (1.5-6.6) H 04/18/18 04:51 Lymph # (Auto) 0.5 10^3/uL (1.5-3.5) L 04/18/18 04:51 [place] # (Auto) 0.6 10^3/uL (0.0-1.0) 04/18/18 04:51 Eos # (Auto) 0.0 10^3/uL (0.0-0.7) 04/18/18 04:51 Baso # (Auto) 0.0 10^3/uL (0.0-0.1) 04/18/18 04:51 Absolute Nucleated RBC 0.00 x10^3/uL 04/18/18 04:51 Nucleated RBC % 0.0 /100WBC 04/18/18 04:51 Sodium 134 mmol/L (135-145) L 04/18/18 04:51 Potassium 3.4 mmol/L (3.5-5.0) L 04/18/18 04:51 Chloride 97 mmol/L (101-111) L 04/18/18 04:51 Carbon Dioxide 26 mmol/L (21-32) 04/18/18 04:51 Anion Gap 11.0 (6-13) 04/18/18 04:51 BUN 21 mg/dL (6-20) H 04/18/18 04:51 Creatinine 1.0 mg/dL (0.4-1.0) 04/18/18 04:51 Estimated GFR (MDRD) 53 (>89) L 04/18/18 04:51 Glucose 109 mg/dL (70-100) H 04/18/18 04:51 Lactic Acid 1.1 mmol/L (0.5-2.2) 04/17/18 16:12 Calcium 8.5 mg/dL (8.5-10.3) 04/18/18 04:51 Magnesium 1.4 mg/dL (1.7-2.8) L 04/17/18 15:50 Total Bilirubin 1.8 mg/dL (0.2-1.0) H 04/17/18 15:50 AST 26 IU/L (10-42) 04/17/18 15:50 ALT 28 IU/L (10-60) 04/17/18 15:50 Alkaline Phosphatase 52 IU/L (42-121) 04/17/18 15:50 Troponin I 0.04 ng/mL (<0.49) 04/17/18 15:50 Total Protein 6.5 g/dL (6.7-8.2) L 04/17/18 15:50 Albumin 3.1 g/dL (3.2-5.5) L 04/17/18 15:50 Globulin 3.4 g/dL (2.1-4.2) 04/17/18 15:50 Albumin/Globulin Ratio 0.9 (1.0-2.2) L 04/17/18 15:50 Lipase 21 U/L (22-51) L 04/17/18 15:50 TSH 0.89 uIU/mL (0.34-5.60) 04/18/18 04:51 Urine Color YELLOW 04/17/18 17:23 Urine Clarity CLEAR (CLEAR) 04/17/18 17:23 Urine pH 5.5 PH (5.0-7.5) 04/17/18 17:23 Ur Specific [place] 1.010 (1.002-1.030) 04/17/18 17:23 Urine Protein NEGATIVE mg/dL (NEGATIVE) 04/17/18 17:23 Urine Glucose (UA) NEGATIVE mg/dL (NEGATIVE) 04/17/18 17:23 Urine Ketones NEGATIVE mg/dL (NEGATIVE) 04/17/18 17:23 Urine Occult Blood TRACE-LYSE (NEGATIVE) 04/17/18 17:23 Urine Nitrite NEGATIVE (NEGATIVE) 04/17/18 17:23 Urine Bilirubin NEGATIVE (NEGATIVE) 04/17/18 17:23 Urine Urobilinogen 0.2 (NORMAL) E.U./dL (NORMAL) 04/17/18 17:23 Ur Leukocyte Esterase NEGATIVE (NEGATIVE) 04/17/18 17:23 Ur Microscopic Review NOT INDICATED 04/17/18 17:23 Urine Culture Comments NOT INDICATED 04/17/18 17:23
[2018-04-18] MEDS: RIVAROXABAN 15 MG TABLET PO SCH (17:58)
[2018-04-18] MEDS: ATORVASTATIN 10 MG TABLET PO SCH (20:15)
[2018-04-18] MEDS: CEFEPIME 2 GM in SODIUM CHLORIDE 0.9% MINIBAG 100 ML IV SCH (21:38)
[2018-04-19 05:11] LABS: HGB - HEMOGLOBIN 11.6 g/dL (12.0-16.0); LYMPHOCYTES # (AUTO) 0.4 10^3/uL (1.5-3.5); LYMPHOCYTES % (AUTO) 3.5 %; MEAN CORPUSCULAR HEMOGLOBIN 31.5 pg (27.0-31.0); MEAN CORPUSCULAR HGB CONC 33.3 g/dL (32.0-36.0); MEAN CORPUSCULAR VOLUME 94.8 fL (81.0-99.0); MEAN PLATELET VOLUME 8.3 fL (7.9-10.8); MONOCYTES # (AUTO) 0.7 10^3/uL (0.0-1.0); MONOCYTES % (AUTO) 6.3 %; NEUTROPHILS # (AUTO) 10.4 10^3/uL (1.5-6.6); NEUTROPHILS % (AUTO) 90.2 %; PLT - PLATELET COUNT 198 10^3/uL (130-450); RED BLOOD COUNT 3.67 10^6/uL (4.20-5.40); RED CELL DISTRIBUTION WIDTH 15.5 % (12.0-15.0); WHITE BLOOD COUNT 11.5 x10^3/uL (4.8-10.8)
[2018-04-19 05:17] LABS: CALCIUM 8.8 mg/dL (8.5-10.3)
[2018-04-19] MEDS: SODIUM CHLORIDE FLUSH 0.9% 10 ML SYRINGE IVP PRN ×3 (05:49→22:36)
[2018-04-19] MEDS: methylPREDNISolone SUCCINATE 40 MG/ML VIAL IVP SCH ×3 (05:49→22:36)
[2018-04-19] MEDS: LEVOTHYROXINE 75 MCG TABLET PO SCH (06:03)
[2018-04-19] MEDS: IPRATROPIUM 0.2 MG/ML NEB INH SCH ×3 (07:22→19:38)
[2018-04-19] MEDS: POLYETHYLENE GLYCOL 3350 17 GM PACKET PO SCH (09:28)
[2018-04-19] MEDS: FAMOTIDINE 20 MG TABLET PO SCH (09:28)
[2018-04-19] MEDS: SACCHAROMYCES BOULARDII 250 MG CAPSULE PO SCH ×2 (09:28→17:50)
[2018-04-19] MEDS: SODIUM CHLORIDE FLUSH 0.9% 10 ML SYRINGE IVP SCH ×2 (09:29→17:50)
[2018-04-19] MEDS: FUROSEMIDE 40 MG TABLET PO SCH (09:29)
[2018-04-19] MEDS: RIVAROXABAN 15 MG TABLET PO SCH (17:50)
--- NOTE | 2018-04-19 19:22 | PROVIDER PROGRESS NOTE ---
Assessment/Plan - Problem List (1) HCAP (healthcare-associated pneumonia) Assessment/Plan: No growth from sputum culture. Continue empiric iv antibiotics. Await cultures. (2) COPD exacerbation Assessment/Plan: Improved with nebs, steroids. Possible DCh tomorrow. Will plan a RT exercise oximetry eval for possible home O2. (3) Acute on chronic diastolic heart failure Assessment/Plan: Continue Lasix as needed for volume overload. (4) CHF due to valvular disease Assessment/Plan: Stable (5) Bacteremia Assessment/Plan: No ID yet. Continue empiric antibiotics (6) Chronic a-fib Assessment/Plan: HR is controlled. Continue telemetry. Continue Xarelto. (7) Abnormal CXR with multiple nodules Assessment/Plan: Awaiting CT report from [place] hospitalization 2 mos ago, for comparison. Also, awaiting her Pulmonologists office notes from 2 weeks ago regarding her Dx and plan for the nodules. Will plan imaging with CXR and/or CT prior to DCh. - Current Meds Current Meds: Current Medications Generic Name Dose Route Start Last Admin Trade Name Freq PRN Reason Stop Dose Admin Atorvastatin Calcium 10 mg 04/17/18 21:00 04/18/18 20:15 Lipitor PO 10 mg QPM KINSEY Administration Famotidine 20 mg 04/18/18 09:00 04/19/18 09:28 Pepcid PO 20 mg DAILY KINSEY Administration Furosemide 40 mg 04/19/18 09:00 04/19/18 09:29 Lasix PO 40 mg DAILY KINSEY Administration Levofloxacin 750 mg in 150 mls @ 100 mls/hr 04/17/18 21:00 04/17/18 22:33 Levaquin 750 Mg/150 Ml IV Infused Q48H [facility] Infusion Cefepime HCl 2 gm/ Sodium 100 mls @ 200 mls/hr 04/17/18 22:00 04/18/18 22:08 Chloride IV Infused Q24H [facility] Infusion Ipratropium [place] 0.5 mg 04/19/18 07:00 04/19/18 13:27 Atrovent INH 0.5 mg RTTID K[facility]SEY Administration Levothyroxine Sodium 75 mcg 04/18/18 07:00 04/19/18 06:03 Synthroid PO 75 mcg QDAC K[facility]SEY Administration Methylprednisolone 40 mg 04/17/18 19:00 04/19/18 14:15 Solu-Medrol (40mg Vial) IVP 40 mg TID KINSEY Administration Polyethylene Glycol 17 gm 04/18/18 09:00 04/19/18 09:28 Miralax PO 17 gm DAILY K[facility]SEY Administration Rivaroxaban 15 mg 04/17/18 19:30 04/19/18 17:50 Xarelto PO 15 mg QDDINNER K[facility]SEY Administration Saccharomyces Boulardii 250 mg 04/18/18 08:00 04/19/18 17:50 Florastor PO 250 mg BIDWM K[facility]SEY Administration Sodium Chloride 10 ml 04/17/18 16:33 04/19/18 14:17 Normal Saline Flush 0.9% IVP 10 ml PRN PRN Administration NEEDED PER PROVIDER ORDERS Sodium Chloride 10 ml 04/17/18 17:00 04/19/18 17:50 Normal Saline Flush 0.9% IVP 10 ml 0100,0900,1700 KINSEY Administration - Lab Result Fish Bone Diagrams: 04/19/18 04:55 04/19/18 04:55 - Additional Planning My Orders: My Active Orders 04/19/18 Evaluate and Treat OT [OT] Routine Evaluate and Treat PT [PT] Routine 04/19/18 09:00 Furosemide [Lasix] 40 mg PO DAILY 04/19/18 10:48 CHF Education [RC] .ONCE 04/19/18 10:49 Nutrition Consult [CONS] Routine Subjective - Subjective Patient Reports: Feeling Better Objective Vital Signs: Vital Signs - 24 hr 04/18/18 04/19/18 04/19/18 21:40 00:00 07:22 Temperature 36.6 C Heart Rate 70 69 Heart Rate [ 70 Brachial] Respiratory 18 16 20 Rate Blood Pressure 129/62 [Right Brachial artery] O2 Saturation 97 04/19/18 04/19/18 04/19/18 08:00 13:27 16:00 Temperature 36.7 C 36.9 C Heart Rate 70 Heart Rate [ 72 70 Brachial] Respiratory 17 18 20 Rate Blood Pressure 124/64 137/76 H [Right Brachial artery] O2 Saturation 98 96 Oxygen O2 Source Room air I&O (Last 24 Hrs): Intake and Output Totals x24h 04/17/18 04/18/18 04/19/18 23:59 23:59 23:59 Intake Total 1000 1300 1420 Output Total 1330 500 Balance 1000 -30 920 General: Alert, Oriented x3 HEENT: Mucous membr. moist/pink Neck: Supple, No JVD Neuro: Non Focal Cardiovascular: Regular rate, No murmurs Respiratory: Wheezes, Other (Diminished on L) Abdomen: Soft Extremities: No edema - Results Results: Laboratory Results WBC 11.5 x10^3/uL (4.8-10.8) H 04/19/18 04:55 RBC 3.67 10^6/uL (4.20-5.40) L 04/19/18 04:55 Hgb 11.6 g/dL (12.0-16.0) L 04/19/18 04:55 Hct 34.8 % (37.0-47.0) L 04/19/18 04:55 MCV 94.8 fL (81.0-99.0) 04/19/18 04:55 MCH 31.5 pg (27.0-31.0) H 04/19/18 04:55 MCHC 33.3 g/dL (32.0-36.0) 04/19/18 04:55 RDW 15.5 % (12.0-15.0) H 04/19/18 04:55 Plt Count 198 10^3/uL (130-450) 04/19/18 04:55 MPV 8.3 fL (7.9-10.8) 04/19/18 04:55 Neut # (Auto) 10.4 10^3/uL (1.5-6.6) H 04/19/18 04:55 Lymph # (Auto) 0.4 10^3/uL (1.5-3.5) L 04/19/18 04:55 [place] # (Auto) 0.7 10^3/uL (0.0-1.0) 04/19/18 04:55 Eos # (Auto) 0.0 10^3/uL (0.0-0.7) 04/19/18 04:55 Baso # (Auto) 0.0 10^3/uL (0.0-0.1) 04/19/18 04:55 Absolute Nucleated RBC 0.01 x10^3/uL 04/19/18 04:55 Nucleated RBC % 0.1 /100WBC 04/19/18 04:55 Sodium 131 mmol/L (135-145) L 04/19/18 04:55 Potassium 3.4 mmol/L (3.5-5.0) L 04/19/18 04:55 Chloride 96 mmol/L (101-111) L 04/19/18 04:55 Carbon Dioxide 24 mmol/L (21-32) 04/19/18 04:55 Anion Gap 11.0 (6-13) 04/19/18 04:55 BUN 28 mg/dL (6-20) H 04/19/18 04:55 Creatinine 1.0 mg/dL (0.4-1.0) 04/19/18 04:55 Estimated GFR (MDRD) 53 (>89) L 04/19/18 04:55 Glucose 177 mg/dL (70-100) H 04/19/18 04:55 Lactic Acid 1.1 mmol/L (0.5-2.2) 04/17/18 16:12 Calcium 8.8 mg/dL (8.5-10.3) 04/19/18 04:55 Magnesium 1.4 mg/dL (1.7-2.8) L 04/17/18 15:50 Total Bilirubin 1.8 mg/dL (0.2-1.0) H 04/17/18 15:50 AST 26 IU/L (10-42) 04/17/18 15:50 ALT 28 IU/L (10-60) 04/17/18 15:50 Alkaline Phosphatase 52 IU/L (42-121) 04/17/18 15:50 Troponin I 0.04 ng/mL (<0.49) 04/17/18 15:50 Total Protein 6.5 g/dL (6.7-8.2) L 04/17/18 15:50 Albumin 3.1 g/dL (3.2-5.5) L 04/17/18 15:50 Globulin 3.4 g/dL (2.1-4.2) 04/17/18 15:50 Albumin/Globulin Ratio 0.9 (1.0-2.2) L 04/17/18 15:50 Lipase 21 U/L (22-51) L 04/17/18 15:50 TSH 0.89 uIU/mL (0.34-5.60) 04/18/18 04:51 Urine Color YELLOW 04/17/18 17:23 Urine Clarity CLEAR (CLEAR) 04/17/18 17:23 Urine pH 5.5 PH (5.0-7.5) 04/17/18 17:23 Ur Specific [place] 1.010 (1.002-1.030) 04/17/18 17:23 Urine Protein NEGATIVE mg/dL (NEGATIVE) 04/17/18 17:23 Urine Glucose (UA) NEGATIVE mg/dL (NEGATIVE) 04/17/18 17:23 Urine Ketones NEGATIVE mg/dL (NEGATIVE) 04/17/18 17:23 Urine Occult Blood TRACE-LYSE (NEGATIVE) 04/17/18 17:23 Urine Nitrite NEGATIVE (NEGATIVE) 04/17/18 17:23 Urine Bilirubin NEGATIVE (NEGATIVE) 04/17/18 17:23 Urine Urobilinogen 0.2 (NORMAL) E.U./dL (NORMAL) 04/17/18 17:23 Ur Leukocyte Esterase NEGATIVE (NEGATIVE) 04/17/18 17:23 Ur Microscopic Review NOT INDICATED 04/17/18 17:23 Urine Culture Comments NOT INDICATED 04/17/18 17:23 ABX Reporting Has patient been on IV antibiotics over the past 48 hours?: Yes
[2018-04-19] MEDS: LEVALBUTEROL 1.25 MG/3 ML NEB INH PRN (19:38)
[2018-04-19] MEDS: ATORVASTATIN 10 MG TABLET PO SCH (20:51)
[2018-04-19] MEDS: levoFLOXacin 750 MG/150 ML 750 MG/150 ML BAG IV SCH (20:52)
[2018-04-19] MEDS: CEFEPIME 2 GM in SODIUM CHLORIDE 0.9% MINIBAG 100 ML IV SCH (22:36)
[2018-04-20] MEDS: SODIUM CHLORIDE FLUSH 0.9% 10 ML SYRINGE IVP SCH ×3 (00:29→17:52)
[2018-04-20 04:44] LABS: CALCIUM 9.1 mg/dL (8.5-10.3)
[2018-04-20 04:56] LABS: BASOPHILS % (AUTO) 0.1 %; HGB - HEMOGLOBIN 11.7 g/dL (12.0-16.0); LYMPHOCYTES # (AUTO) 0.5 10^3/uL (1.5-3.5); LYMPHOCYTES % (AUTO) 4.4 %; MEAN CORPUSCULAR HEMOGLOBIN 30.9 pg (27.0-31.0); MEAN CORPUSCULAR HGB CONC 31.6 g/dL (32.0-36.0); MEAN CORPUSCULAR VOLUME 97.9 fL (81.0-99.0); MEAN PLATELET VOLUME 8.3 fL (7.9-10.8); MONOCYTES # (AUTO) 0.8 10^3/uL (0.0-1.0); MONOCYTES % (AUTO) 8.1 %; NEUTROPHILS % (AUTO) 87.4 %; PLT - PLATELET COUNT 225 10^3/uL (130-450); RED BLOOD COUNT 3.78 10^6/uL (4.20-5.40); WHITE BLOOD COUNT 10.3 x10^3/uL (4.8-10.8)
[2018-04-20] MEDS: methylPREDNISolone SUCCINATE 40 MG/ML VIAL IVP SCH ×3 (05:53→22:11)
[2018-04-20] MEDS: SODIUM CHLORIDE FLUSH 0.9% 10 ML SYRINGE IVP PRN ×2 (05:53→22:11)
[2018-04-20] MEDS: LEVOTHYROXINE 75 MCG TABLET PO SCH (05:59)
[2018-04-20] MEDS: IPRATROPIUM 0.2 MG/ML NEB INH SCH ×3 (09:00→20:52)
--- NOTE | 2018-04-20 09:12 | XRAY Report ---
Procedure Date: 04/20/2018 Accession Number: [id number] / [id number] Procedure: XR - Chest 2 View X-Ray CPT Code: 42040 FULL RESULT: EXAM: Chest 2 View X-Ray DATE: 04/20/2018 9:00 AM CLINICAL HISTORY: pneumonia COMPARISON: Chest x-ray and CT 04/17/2018 TECHNIQUE: 2 views. FINDINGS: Lungs/Pleura: Improving right basilar infiltrate. No effusion or pneumothorax. Mediastinum: Heart and mediastinal contours are unremarkable. Other: Stable pacemaker. IMPRESSION: Improving right basilar infiltrate. RADIA
[2018-04-20] MEDS: POTASSIUM CHLORIDE 20 MEQ TABLET PO SCH ×2 (09:15→17:52)
[2018-04-20] MEDS: FAMOTIDINE 20 MG TABLET PO SCH (09:15)
[2018-04-20] MEDS: FUROSEMIDE 40 MG TABLET PO SCH (09:15)
[2018-04-20] MEDS: SACCHAROMYCES BOULARDII 250 MG CAPSULE PO SCH ×2 (09:15→17:52)
[2018-04-20] MEDS: MAGNESIUM SULFATE 1 GM in SODIUM CHLORIDE 0.9% 50 ML IV SCH ×4 (09:16→14:52)
[2018-04-20] MEDS: MAGNESIUM OXIDE 400 MG TABLET PO SCH (09:16)
[2018-04-20] MEDS: POLYETHYLENE GLYCOL 3350 17 GM PACKET PO SCH (09:16)
[2018-04-20] MEDS: SODIUM CHLORIDE 1 GM TABLET PO SCH ×2 (09:31→12:31)
--- NOTE | 2018-04-20 12:04 | PROVIDER PROGRESS NOTE ---
Subjective - Prog Note Date Prog Note Date: 04/20/18 Prog Note Time: 11:30 - Subjective Pt reports feeling: Improved Subjective: Patient says she is breathing easier today. She denies any cough or sputum production this morning. She denies any fevers or chills. She has been up to the bathroom and was not significantly dyspneic. Her appetite is good and she is eating and moving her bowels. Current Medications - Current Medications Current Medications: Active Medications Generic Name Dose Route Start Last Admin Trade Name Freq PRN Reason Stop Dose Admin Acetaminophen 650 mg 04/17/18 16:33 Tylenol PO Q4HR PRN Pain 1 to 4 Hydrocodone Bitart/Acetaminophen 1 tab 04/17/18 16:33 [place] 5/325 PO Q4HR PRN Pain 5 to 7 Atorvastatin Calcium 10 mg 04/17/18 21:00 04/19/18 20:51 Lipitor PO 10 mg QPM KINSE[facility] Administration Famotidine 20 mg 04/18/18 09:00 04/20/18 09:15 Pepcid PO 20 mg DAILY [facility] Administration Furosemide 40 mg 04/19/18 09:00 04/20/18 09:15 Lasix PO 40 mg DAILY [facility] Administration Levofloxacin 750 mg in 150 mls @ 100 mls/hr 04/17/18 21:00 04/19/18 22:22 Levaquin 750 Mg/150 Ml IV Infused Q48H [facility] Infusion Ipratropium [place] 0.5 mg 04/19/18 07:00 04/20/18 09:00 Atrovent INH 0.5 mg RTTID [facility] Administration Levalbuterol HCl 1.25 mg 04/18/18 22:25 04/19/18 19:38 Xopenex INH 1.25 mg Q6H PRN Administration Shortness of Air/Wheezing Levothyroxine Sodium 75 mcg 04/18/18 07:00 04/20/18 05:59 Synthroid PO 75 mcg QDAC [facility] Administration Magnesium Oxide 400 mg 04/20/18 08:00 04/20/18 09:16 Mag Ox PO 400 mg DAILYWM [facility] Administration Methylprednisolone 40 mg 04/17/18 19:00 04/20/18 05:53 Solu-Medrol (40mg Vial) IVP 40 mg TID [facility] Administration Ondansetron HCl 4 mg 04/17/18 16:33 Zofran Inj IVP Q6HR PRN Nausea / Vomiting Polyethylene Glycol 17 gm 04/18/18 09:00 04/20/18 09:16 Miralax PO 17 gm DAILY K[facility]SEY Administration Potassium Chloride 20 meq 04/20/18 08:00 04/20/18 09:15 K-Dur PO 20 meq BIDWM K[facility]Y Administration Prochlorperazine Edisylate 10 mg 04/17/18 16:33 Compazine Inj IVP Q6HR PRN Nausea / Vomiting Rivaroxaban 15 mg 04/17/18 19:30 04/19/18 17:50 Xarelto PO 15 mg QDDINNER K[facility]SEY Administration Saccharomyces Boulardii 250 mg 04/18/18 08:00 04/20/18 09:15 Florastor PO 250 mg BIDWM K[facility] Administration Sodium Chloride 10 ml 04/17/18 16:33 04/20/18 05:53 Normal Saline Flush 0.9% IVP 10 ml PRN PRN Administration NEEDED PER PROVIDER ORDERS Sodium Chloride 10 ml 04/17/18 17:00 04/20/18 09:16 Normal Saline Flush 0.9% IVP 10 ml 0100,0900,1700 KINSEY Administration Sodium Chloride 1 gm 04/20/18 08:00 04/20/18 09:31 Salt Tab PO 1 gm DAILY K[facility] Administration Atorvastatin [Lipitor] 10 mg PO QPM 05/12/17 Omeprazole 40 mg PO QDAC 05/12/17 Tiotropium [place] [Spiriva] 1 puffs INH DAILY 05/12/17 Budesonide/Formoterol Fumarate [Symbicort 160-4.5 Mcg Inhaler] 1 - 2 puffs INH BID 04/17/18 Furosemide [Lasix] 40 mg PO MOWEFR@0800 04/17/18 Levalbuterol [Xopenex] 1.25 mg INH Q6H PRN 04/17/18 Levothyroxine [Synthroid] 75 mcg PO QDAC 04/17/18 Magnesium l-Lactate [Magnesium l-Lactate Dihyd Sr] 168 mg PO BIDWM 04/17/18 Rivaroxaban [Xarelto] 15 mg PO QDDINNER 04/17/18 Sodium Chloride For Inhalation [Hyper-Ramin] 4 ml INH BID 04/17/18 Spironolactone [Aldactone] 12.5 mg PO DAILY 04/17/18 Ubidecarenone [Coenzyme Q-10] 200 mg PO DAILY 04/17/18 Zolpidem [Ambien] 5 mg PO HS PRN 04/17/18 Objective - Vital Signs/Intake & Output Reviewed Vital Signs: Yes Vital Signs: Vital Signs x48h Temp Pulse Pulse Resp BP Pulse Ox 04/20/18 10:32 36.3 C L 68 18 133/65 H 94 04/20/18 09:00 70 17 04/20/18 04:40 36.4 C L 70 18 145/73 H 97 Intake & Output: Intake & Output 04/17/18 04/18/18 04/19/18 04/20/18 23:59 23:59 23:59 23:59 Intake Total 1000 1300 2070 280 Output Total 1330 625 600 Balance 1000 -30 1445 -320 - Objective General Appearance: positive: No acute distress, Alert Eyes Bilateral: positive: Normal inspection, PERRL, EOMI, No lid inflammation, Conjunctivae nml, No scleral icterus ENT: positive: ENT inspection nml, Pharynx nml, No signs of dehydration Neck: positive: Nml inspection, Thyroid nml, No JVD, Trachea midline. negative : Thyromegaly Respiratory: positive: Chest non-tender, No respiratory distress, Breath sounds nml. negative: Wheezes, Rales, Rhonchi Cardiovascular: positive: Regular rate & rhythm, No murmur, No gallop Abdomen: positive: Non-tender, No organomegaly, Nml bowel sounds, No distention. negative: Guarding, Rebound Back: positive: Nml inspection. negative: CVA tenderness (R), CVA tenderness (L ) Skin: positive: Color nml, No rash, Warm, Dry. negative: Diaphoresis, Pallor, Skin rash Extremities: positive: Non-tender, Full ROM, Nml appearance, No pedal edema Neurologic/Psychiatric: positive: Oriented x3, CN's nml (2-12), Motor nml, Sensation nml, Mood/affect nml - Lab Results Fish Bones: 04/20/18 04:25 04/20/18 04:25 Other Labs: Lab Results x24hrs 04/20/18 04/20/18 Range/Units 04:25 04:25 WBC 10.3 (4.8-10.8) x10^3/uL RBC 3.78 L (4.20-5.40) 10^6/uL Hgb 11.7 L (12.0-16.0) g/dL Hct 37.0 (37.0-47.0) % MCV 97.9 (81.0-99.0) fL MCH 30.9 (27.0-31.0) pg MCHC 31.6 L (32.0-36.0) g/dL RDW 16.0 H (12.0-15.0) % Plt Count 225 (130-450) 10^3/uL MPV 8.3 (7.9-10.8) fL Neut # (Auto) 9.0 H (1.5-6.6) 10^3/uL Lymph # (Auto) 0.5 L (1.5-3.5) 10^3/uL [place] # (Auto) 0.8 (0.0-1.0) 10^3/uL Eos # (Auto) 0.0 (0.0-0.7) 10^3/uL Baso # (Auto) 0.0 (0.0-0.1) 10^3/uL Absolute Nucleated RBC 0.04 x10^3/uL Nucleated RBC % 0.3 /100WBC Sodium 132 L (135-145) mmol/L Potassium 3.4 L (3.5-5.0) mmol/L Chloride 97 L (101-111) mmol/L Carbon Dioxide 26 (21-32) mmol/L Anion Gap 9.0 (6-13) BUN 33 H (6-20) mg/dL Creatinine 1.0 (0.4-1.0) mg/dL Estimated GFR (MDRD) 53 L (>89) Glucose 195 H (70-100) mg/dL Calcium 9.1 (8.5-10.3) mg/dL - Diagnostic Imaging Diagnostic Imaging Results: positive: Final report reviewed Diagnostic Imaging Comments: Procedure: XR - Chest 2 View X-Ray CPT Code: 06639 FULL RESULT: EXAM: Chest 2 View X-Ray DATE: 04/20/2018 9:00 AM CLINICAL HISTORY: pneumonia COMPARISON: Chest x-ray and CT 04/17/2018 TECHNIQUE: 2 views. FINDINGS: Lungs/Pleura: Improving right basilar infiltrate. No effusion or pneumothorax. Mediastinum: Heart and mediastinal contours are unremarkable. Other: Stable pacemaker. IMPRESSION: Improving right basilar infiltrate. ABX Reporting Has patient been on IV antibiotics over the past 48 hours?: Yes Assessment/Plan - Problem List (1) HCAP (healthcare-associated pneumonia) Impression: The patient has a right lower lobe infiltrate which is showing improvement on chest x-ray. She is not requiring any supplemental oxygen at this time and her white blood cell count has come down to 10.3 this morning. We will continue present care and if she remains stable overnight we will consider discharge tomorrow. (2) COPD exacerbation Impression: Patient has been given nebulizer treatments and steroids. I have ordered an exercise oximetry with respiratory therapy to see if the patient requires home oxygen. Continue present care. (3) Acute on chronic diastolic heart failure Impression: We are diuresing the patient and she is not showing any signs of fluid overload at this time. Continue present care. (4) Bacteremia Impression: The patient's blood cultures have come back positive for strep pneumonia 2. This is sensitive to most everything. We will continue the patient on her fluoroquinolone and stop the cefepime.
[2018-04-20] MEDS ORDERED: ZOLPIDEM 5 MG TABLET PO PRN (15:59)
[2018-04-20] MEDS: RIVAROXABAN 15 MG TABLET PO SCH (17:52)
[2018-04-20] MEDS: ATORVASTATIN 10 MG TABLET PO SCH (22:11)
[2018-04-21 05:16] LABS: CREATININE 1.1 mg/dL (0.4-1.0); MAGNESIUM 2.6 mg/dL (1.7-2.8); PHOSPHORUS 3.4 mg/dL (2.5-4.6)
[2018-04-21 05:24] LABS: BASOPHILS % (AUTO) 0.1 %; HGB - HEMOGLOBIN 12.3 g/dL (12.0-16.0); LYMPHOCYTES # (AUTO) 0.7 10^3/uL (1.5-3.5); LYMPHOCYTES % (AUTO) 8.5 %; MEAN CORPUSCULAR HGB CONC 32.5 g/dL (32.0-36.0); MEAN CORPUSCULAR VOLUME 95.3 fL (81.0-99.0); MEAN PLATELET VOLUME 8.4 fL (7.9-10.8); MONOCYTES # (AUTO) 0.7 10^3/uL (0.0-1.0); MONOCYTES % (AUTO) 8.5 %; NEUTROPHILS # (AUTO) 6.7 10^3/uL (1.5-6.6); NEUTROPHILS % (AUTO) 82.9 %; PLT - PLATELET COUNT 225 10^3/uL (130-450); RED BLOOD COUNT 3.96 10^6/uL (4.20-5.40); RED CELL DISTRIBUTION WIDTH 15.4 % (12.0-15.0); WHITE BLOOD COUNT 8.1 x10^3/uL (4.8-10.8)
[2018-04-21] MEDS: LEVOTHYROXINE 75 MCG TABLET PO SCH (06:13)
[2018-04-21] MEDS: SODIUM CHLORIDE FLUSH 0.9% 10 ML SYRINGE IVP PRN (06:14)
[2018-04-21] MEDS: SODIUM CHLORIDE FLUSH 0.9% 10 ML SYRINGE IVP SCH ×2 (06:14→09:54)
[2018-04-21] MEDS: methylPREDNISolone SUCCINATE 40 MG/ML VIAL IVP SCH (06:14)
[2018-04-21] MEDS: LEVALBUTEROL 1.25 MG/3 ML NEB INH PRN (09:24)
[2018-04-21] MEDS: IPRATROPIUM 0.2 MG/ML NEB INH SCH (09:24)
[2018-04-21] MEDS: MAGNESIUM OXIDE 400 MG TABLET PO SCH (09:48)
[2018-04-21] MEDS: SODIUM CHLORIDE 1 GM TABLET PO SCH (09:48)
[2018-04-21] MEDS: FUROSEMIDE 40 MG TABLET PO SCH (09:48)
[2018-04-21] MEDS: POLYETHYLENE GLYCOL 3350 17 GM PACKET PO SCH (09:48)
[2018-04-21] MEDS: FAMOTIDINE 20 MG TABLET PO SCH (09:48)
[2018-04-21] MEDS: POTASSIUM CHLORIDE 20 MEQ TABLET PO SCH (09:48)
[2018-04-21] MEDS: SACCHAROMYCES BOULARDII 250 MG CAPSULE PO SCH (09:48)
--- NOTE | 2018-04-21 10:43 | Discharge Plan ---
Discharge Plan Disposition: 01 Home, Self Care Condition: Serious Prescriptions: Spironolactone [Aldactone] 25 mg PO DAILY #30 tablet Diet: Cardiac Activity Restrictions: Activity as Tolerated Shower Restrictions: No Driving Restrictions: No Weight Bearing: Partial Weight No Smoking: If you smoke, Please STOP! Call for help. Follow-up with: Patricia Perla ARNP [Primary Care Provider] -
[2018-04-21] MEDS ORDERED: SPIRONOLACTONE 25 MG TABLET PO SCH (11:00)
[2018-04-21 11:54] VITALS: BP 144/70
--- NOTE | 2018-04-21 12:17 | DISCHARGE SUMMARY ---
"Discharge Summary Admit Date: 04/17/18 Discharge Date: 04/21/18 Discharging Provider: Mary Jane Mauro DO Primary Care Provider: Pan Cleveland MD Code Status: Attempt Resuscitation Condition at Discharge: Serious Discharge Disposition: 01 Home, Self Care - DIAGNOSES Admission Diagnoses: 1. Healthcare associated pneumonia 2. COPD exacerbation 3. Congestive heart failure, [place] Heart Association class II 4. Atrial fibrillation 5. Hypertension Discharge Diagnoses with Status of Each Condition: 1. Healthcare associated pneumonia- resolving, The patient is breathing easily on room air. And exercise oxygen level testing was performed this morning and found the patient to be able to tolerate exercise without any significant difficulty. We will discharge the pt home on levaquin. 2. COPD exacerbation- Resolved. 3. Congestive heart failure, [place] Heart Association class II - No indication of exacerbation during this hospitalization. Continue home care. 4. Atrial fibrillation- Rate controlled, continue home care. 5. Hypertension- We will discharge the patient home on her home medication regimen. - HPI History of Present Illness: Patient is an 88-year-old female with a past medical history significant for atrial fibrillation status post pacemaker on Xarelto, congestive heart failure with unknown ejection fraction, COPD, coronary artery disease status post stent , hypertension and osteoarthritis who presented to the emergency department with a chief complaint of shortness of breath. The patient states that between the months of November and January of this year she was hospitalized 3 times in [place] where she lives during the winter. She states first she was hospitalized for a bilateral pneumonia and spent 2 weeks in the hospital then was hospitalized for A. fib with rapid ventricular response and states that she spent 2 weeks in the hospital ending up with a pacemaker then the third time she was hospitalized for a CHF exacerbation. She states that over the last 2 months she has been doing fairly well and her daughter has been staying with her since her hospitalizations in [place]. She states that over the last week she has noticed that she has become increasingly short of breath. She states initially she noticed the shortness of breath with exertion as she could not go more than 30 feet without becoming short of breath and having to stop. She states over the last week it has progressed to the point where today with just 10 feet she became very short of breath and had to stop. The patient also states that she has been having a dry cough and today noted that she had a fever of 101. She was also clammy and when her daughter checked her oxygen saturation this afternoon she was found to have an O2 sat of 83% while sitting in bed. At this point the daughter became concerned and called EMS. The patient denies any headaches, blurred vision, runny nose, sore throat, nasal congestion, difficulty swallowing, chest pain, orthopnea, PND, palpitations, abdominal pain, nausea, vomiting, diarrhea, constipation, urinary urgency, urinary frequency, dysuria, joint pain, joint swelling, back pain, neck stiffness, recent unintentional weight loss, changes in her appetite or any focal neurologic deficits. The patient does state that she has had some increased lower extremity swelling. On presentation to the emergency department the patient was febrile with a low- grade temperature of 37.8, normotensive and tachypneic with a respiratory rate of 27 and hypoxic with oxygen saturation of 94% on 3 L of oxygen. The patient underwent routine lab work which showed creatinine of 1.3 from a baseline of 1.0 mild hypo-natremia and hypomagnesemia. The patient's troponin was 0.04 and she did not have a leukocytosis. The patient's EKG was paced with no ST elevations or ischemic changes noted. The patient's chest x-ray revealed consolidation or mass the right lung base as well as diffuse interstitial prominence raising the possibility of interstitial edema versus airspace disease. The patient started on ceftriaxone and azithromycin for community acquired pneumonia and admitted to the medical [facility]. - HOSPITAL COURSE Hospital Course: The patient was admitted to the hospital with a diagnosis of pneumonia and placed on IV antibiotics. Blood cultures found strep pneumonia and the patient' s antibiotics were adjusted accordingly. She has improved clinically to the point where she is no longer significantly short of breath when ambulating and does not need to rest. She will be discharged home on her current medication regimen. - ALLERGIES Allergies/Adverse Reactions: Allergies Allergy/AdvReac Type Severity Reaction Status Date / Time No Known Drug Allergies Allergy Verified 05/12/17 14:39 - MEDICATIONS Home Medications: Ambulatory Orders Medication Instructions Recorded Confirmed Atorvastatin [Lipitor] 10 mg PO QPM 05/12/17 04/17/18 Omeprazole 40 mg PO QDAC 05/12/17 04/17/18 Tiotropium [place] [Spiriva] 1 puffs INH DAILY 05/12/17 04/17/18 Budesonide/Formoterol Fumarate 1 - 2 puffs INH BID 04/17/18 04/17/18 [Symbicort 160-4.5 Mcg Inhaler] Furosemide [Lasix] 40 mg PO MOWEFR@0800 04/17/18 04/17/18 Levalbuterol [Xopenex] 1.25 mg INH Q6H PRN 04/17/18 04/17/18 Levothyroxine [Synthroid] 75 mcg PO QDAC 04/17/18 04/17/18 Magnesium l-Lactate [Magnesium 168 mg PO BIDWM 04/17/18 04/17/18 l-Lactate Dihyd Sr] Rivaroxaban [Xarelto] 15 mg PO QDDINNER 04/17/18 04/17/18 Sodium Chloride For Inhalation 4 ml INH BID 04/17/18 04/17/18 [Hyper-Ramin] Spironolactone [Aldactone] 12.5 mg PO DAILY 04/17/18 04/17/18 Ubidecarenone [Coenzyme Q-10] 200 mg PO DAILY 04/17/18 04/17/18 Zolpidem [Ambien] 5 mg PO HS PRN 04/17/18 04/17/18 Levothyroxine [Synthroid] 75 mcg PO QDAC tablet 04/21/18 Rivaroxaban [Xarelto] 15 mg PO QDDINNER tablet 04/21/18 Spironolactone [Aldactone] 25 mg PO DAILY #30 tablet 04/21/18 Home Medications Other | Comments: Patient was given 5 days of Levaquin for home use. - PHYSICAL EXAM AT DISCHARGE General Appearance: positive: No acute distress, Alert Eyes Bilateral: positive: Normal inspection, PERRL, EOMI, No lid inflammation, Conjunctivae nml, No scleral icterus ENT: positive: ENT inspection nml, Pharynx nml, No signs of dehydration Neck: positive: Nml inspection, Thyroid nml, No JVD, Trachea midline. negative : Thyromegaly Respiratory: positive: Chest non-tender, No respiratory distress, Breath sounds nml. negative: Wheezes, Rales, Rhonchi Cardiovascular: positive: Regular rate & rhythm, No murmur, No gallop Peripheral Pulses: positive: 1+ Abdomen: positive: Non-tender, No organomegaly, Nml bowel sounds, No distention. negative: Guarding, Rebound Back: positive: Nml inspection. negative: CVA tenderness (R), CVA tenderness (L ) Skin: positive: Color nml, No rash, Warm, Dry. negative: Cyanosis Extremities: positive: Non-tender, Full ROM, Nml appearance, No pedal edema Neurologic/Psychiatric: positive: Oriented x3, CN's nml (2-12), Motor nml, Sensation nml, Mood/affect nml - LABS Result Diagrams: 04/21/18 04:20 04/21/18 04:20 - DIAGNOSTIC IMAGING Diagnostic Imaging Results: Final report reviewed Diagnostic Imaging Results Comments: Procedure: XR - Chest 2 View X-Ray CPT Code: 65773 FULL RESULT: EXAM: Chest 2 View X-Ray DATE: 04/20/2018 9:00 AM CLINICAL HISTORY: pneumonia COMPARISON: Chest x-ray and CT 04/17/2018 TECHNIQUE: 2 views. FINDINGS: Lungs/Pleura: Improving right basilar infiltrate. No effusion or pneumothorax. Mediastinum: Heart and mediastinal contours are unremarkable. Other: Stable pacemaker. IMPRESSION: Improving right basilar infiltrate. - FOLLOW UP Follow Up: Follow-up with Dr. Cleveland in 1 week - TIME SPENT Time Spent in Discharge (Minutes): 40"
== END 2018-04-21 13:50 | disposition home or self-care (01) | DRG 193 ==
LOC: EDUNIT# → ED 15:22 → MS3 16:33
PROVIDERS: ADMIT Internal Medicine; ATTEND Hospitalist
DX: J13 Pneumonia due to Streptococcus pneumoniae (principal); I50.33 Acute on chronic diastolic (congestive) heart failure; I48.91 Unspecified atrial fibrillation; K21.9 Gastro-esophageal reflux disease without esophagitis; I50.9 Heart failure, unspecified; J44.1 Chronic obstructive pulmonary disease with (acute) exacerbation; J44.0 Chronic obstructive pulmonary disease with (acute) lower respiratory infection; E87.1 Hypo-osmolality and hyponatremia; I38 Endocarditis, valve unspecified; R78.81 Bacteremia; E83.42 Hypomagnesemia; R09.02 Hypoxemia; I48.2 Chronic atrial fibrillation; I10 Essential (primary) hypertension; I25.10 Atherosclerotic heart disease of native coronary artery without angina pectoris; Y95 Nosocomial condition; Z77.22 Contact with and (suspected) exposure to environmental tobacco smoke (acute) (chronic); Z95.0 Presence of cardiac pacemaker; Z79.01 Long term (current) use of anticoagulants; Z95.5 Presence of coronary angioplasty implant and graft; Z87.891 Personal history of nicotine dependence; Z79.51 Long term (current) use of inhaled steroids; Z79.899 Other long term (current) drug therapy
CPT/HCPCS: 36415; 71045; 71046; 71250; 80048; 80053; 81001; 81003; 83605; 83690; 83735; 83880; 84100; 84443; 84484; 85025; 87040; 87077; 87086; 87181; 93005; 93306; 94640; 94761; 96365; 99283; 99284; 99285